=== PATIENT | female | born 1945 | race Caucasian/White ===

== ENCOUNTER 2016-11-29 22:42 | Inpatient (IN) | payer MEDICARE ==
[~2016-11-29] VITALS: Ht 172.7 cm; Wt 44.5 kg
[2016-11-29] MEDS ORDERED: PAXIL10 MG ORAL (22:55)
[2016-11-29] MEDS ORDERED: INHALER (22:55)
[2016-11-29 23:00] VITALS: BP 97/62
[2016-11-29] MEDS ORDERED: Morphine Sulfate 2mg/ml Inj IVP ONE (23:15)
[2016-11-30] VITALS (7 sets, daily range): BP systolic 101–161; BP diastolic 65–104
[2016-11-30 00:16] LABS: BASOPHILS % (AUTO) 1.3 % (0.0-2.0); EOSINOPHILS % (AUTO) 1.6 % (0.0-3.0); LYMPHOCYTES % (AUTO) 21.5 % (20.0-45.0); MEAN CORPUSCULAR HGB CONC 33.3 G/DL (32.0-36.0); MEAN CORPUSCULAR VOLUME 108 FL (80-99); MEAN PLATELET VOLUME 6.3 FL (6.5-10.1); MONOCYTES % (AUTO) 6.4 % (1.0-10.0); NEUTROPHILS % (AUTO) 69.2 % (45.0-75.0); PLATELET COUNT 325 K/UL (150-450); RED BLOOD COUNT 4.61 M/UL (4.20-5.40); RED CELL DISTRIBUTION WIDTH 12.7 % (11.6-14.8); WHITE BLOOD COUNT 6.2 K/UL (4.8-10.8)
--- NOTE | 2016-11-30 00:24 | Emergency Room Report ---
History of Present Illness General Chief Complaint: Multiple Trauma/Fall Source: Patient Present Illness HPI Patient is 71-year-old female who presented after increased right hip pain after a fall. The patient reportedly had difficulty standing. Patient was brought in by EMS. Patient had prior history of left hip replacement. Patient had pain to her left hip. She denied other locations of pain. She denied any head trauma. Patient had increased pain with movement. Patient's previous orthopedic surgery was done by Dr. Rudy Taylor. Allergies: Coded Allergies: ASPIRIN (Verified Allergy, Unknown, 11/29/16) Patient History Past Medical History: see triage record Reviewed Nursing Documentation: PMH: Agreed, PSxH: Agreed Nursing Documentation-PMH Hx Asthma: Yes Review of Systems All Other Systems: negative except mentioned in HPI Physical Exam Vital Signs Date Time Temp Pulse Resp B/P Pulse Ox O2 Delivery O2 Flow Rate FiO2 11/29/16 22:51 98.4 101 16 97/62 98 Room Air Sp02 EP Interpretation: reviewed, normal General Appearance: normal inspection, well appearing, no apparent distress, alert, GCS 15, thin Head: atraumatic ENT: normal ENT inspection, hearing grossly normal, normal voice Neck: normal inspection, full range of motion, supple, no bony tend Respiratory: normal inspection, lungs clear, normal breath sounds, no respiratory distress, no retraction, no wheezing Cardiovascular #1: regular rate, rhythm, no edema Gastrointestinal: normal inspection, normal bowel sounds, non tender, soft, no guarding, no hernia Genitourinary: no CVA tenderness Musculoskeletal: normal inspection, back normal, normal range of motion Neurologic: normal inspection, alert, oriented x3, responsive, fraternity adviser III-XII nml as tested, speech normal Psychiatric: normal inspection, judgement/insight normal, mood/affect normal Skin: normal inspection, normal color, no rash Medical Decision Making Diagnostic Impression: Primary Impression: Fall Additional Impressions: Closed right hip fracture Trochanteric fracture ER Course Patient presented after a fall. Differential diagnosis included was not limited to right hip fracture, dislocation, contusion, acetabular fracture among others.Because of complexity of patient's case laboratory testing and imaging studies were ordered. The patient was noted to have CT imaging read by radiologist which shows a right trochanteric fracture. Patient was given IV pain medications. The patient was discussed with [facility] and she stated she wanted to be transferred however they do not have any beds available. Dr. Calloway was contacted for inpatient management due to complexity of medical condition. The patient declined orthopedic consult at [facility] at this time Labs Test 11/30/16 00:00 White Blood Count 6.2 K/UL (4.8-10.8) Red Blood Count 4.61 M/UL (4.20-5.40) Hemoglobin 16.6 G/DL (12.0-16.0) Hematocrit 49.8 % (37.0-47.0) Mean Corpuscular Volume 108 FL (80-99) Mean Corpuscular Hemoglobin 36.0 PG (27.0-31.0) Mean Corpuscular Hemoglobin Concent 33.3 G/DL (32.0-36.0) Red Cell Distribution Width 12.7 % (11.6-14.8) Platelet Count 325 K/UL (150-450) Mean Platelet Volume 6.3 FL (6.5-10.1) Neutrophils (%) (Auto) 69.2 % (45.0-75.0) Lymphocytes (%) (Auto) 21.5 % (20.0-45.0) Monocytes (%) (Auto) 6.4 % (1.0-10.0) Eosinophils (%) (Auto) 1.6 % (0.0-3.0) Basophils (%) (Auto) 1.3 % (0.0-2.0) Prothrombin Time 9.7 SEC (9.30-11.50) Prothromb Time International Ratio 0.9 (0.9-1.1) Activated Partial Thromboplast Time 26 SEC (23-33) Sodium Level 138 mEQ/L (135-145) Potassium Level 4.0 mEQ/L (3.4-4.9) Chloride Level 98 mEQ/L (98-107) Carbon Dioxide Level 28 mEQ/L (20-30) Anion Gap 12 (5-15) Blood Urea Nitrogen 12 mg/dL (7-23) Creatinine 1.1 mg/dL (0.5-0.9) Estimat Glomerular Filtration Rate 49.1 mL/min (>60) Glucose Level 156 mg/dL (74-106) Calcium Level 9.7 mg/dL (8.6-10.2) Total Bilirubin 0.3 mg/dL (0.0-1.2) Aspartate Amino Transf (AST/SGOT) 16 U/L (5-40) Alanine Aminotransferase (ALT/SGPT) 10 U/L (3-33) Alkaline Phosphatase 70 U/L (35-104) Total Protein 6.5 g/dL (6.6-8.7) Albumin 4.3 g/dL (3.5-5.2) Globulin 2.2 g/dL Albumin/Globulin Ratio 1.9 (1.0-2.7) EKG Diagnostic Results Rate: normal Rhythm: NSR ST Segments: no acute changes ASA given to the pt in ED: No Last Vital Signs Date Time Temp Pulse Resp B/P Pulse Ox O2 Delivery O2 Flow Rate FiO2 11/29/16 22:51 98.4 101 16 97/62 98 Room Air Status: unchanged Disposition: ADMITTED INPATIENT Condition: Serious Referrals: NON PHYSICIAN (PCP) Felice Dover Nov 30, 2016 00:24
[2016-11-30 00:28] LABS: INR 0.9 (0.9-1.1); PROTHROMBIN TIME 9.7 SEC (9.30-11.50)
[2016-11-30 00:32] LABS: ALBUMIN/GLOBULIN RATIO 1.9 (1.0-2.7); CALCIUM 9.7 mg/dL (8.6-10.2); CREATININE 1.1 mg/dL (0.5-0.9); GLOMERULAR FILTRATION RATE 49.1 mL/min (>60); TOTAL PROTEIN 6.5 g/dL (6.6-8.7)
[2016-11-30] MEDS ORDERED: Morphine Sulfate 2mg/ml Inj IVP ONE (01:00)
[2016-11-30] MEDS ORDERED: Morphine Sulfate 2mg/ml Inj IVP PRN ×4 (01:30→17:30)
[2016-11-30] MEDS ORDERED: D5 1/2NS 1,000 ML IV SCH (06:42)
[2016-11-30] MEDS ORDERED: LORazepam Inj 2mg/ml 1ml IV PRN (06:45)
[2016-11-30] MEDS ORDERED: Miralax 17gm pkt ORAL PRN (06:45)
[2016-11-30] MEDS ORDERED: Zolpidem 5mg tab ORAL PRN (06:45)
[2016-11-30] MEDS ORDERED: Mylanta II UD 30ml ORAL PRN (06:45)
[2016-11-30] MEDS: Morphine Sulfate 4mg/ml Inj IVP PRN ×3 (07:56→15:55)
--- NOTE | 2016-11-30 08:52 | Consultation ---
History of Present Illness General Date patient seen: Nov 30, 2016 Chief Complaint: Multiple Trauma/Fall Present Illness Allergies: Coded Allergies: ASPIRIN (Verified Allergy, Unknown, 11/29/16) Medication History Scheduled Paroxetine Hcl* (Paxil*), 10 MG ORAL DAILY, (Reported) Miscellaneous Medications [Inhaler], (Reported) Patient History Healthcare decision maker Resuscitation status Advanced Directive on File Physical Exam Last 24 Hour Vital Signs Date Time Temp Pulse Resp B/P Pulse Ox O2 Delivery O2 Flow Rate FiO2 11/30/16 08:38 97.0 81 20 161/104 95 Room Air 11/30/16 04:02 98.4 11/30/16 04:00 97.0 80 18 151/92 96 Room Air 11/30/16 01:43 98.4 89 16 105/65 99 Room Air 11/30/16 01:40 98.4 89 16 105/65 99 Room Air 11/30/16 01:34 98.2 11/30/16 01:05 98.2 98 17 101/68 100 Room Air 11/30/16 00:34 98.2 11/29/16 23:00 98.4 101 16 97/62 98 Room Air 11/29/16 22:51 98.4 101 16 97/62 98 Room Air Laboratory Tests Test 11/30/16 00:00 White Blood Count 6.2 K/UL (4.8-10.8) Red Blood Count 4.61 M/UL (4.20-5.40) Hemoglobin 16.6 G/DL (12.0-16.0) H Hematocrit 49.8 % (37.0-47.0) H Mean Corpuscular Volume 108 FL (80-99) H Mean Corpuscular Hemoglobin 36.0 PG (27.0-31.0) H Mean Corpuscular Hemoglobin Concent 33.3 G/DL (32.0-36.0) Red Cell Distribution Width 12.7 % (11.6-14.8) Platelet Count 325 K/UL (150-450) Mean Platelet Volume 6.3 FL (6.5-10.1) L Neutrophils (%) (Auto) 69.2 % (45.0-75.0) Lymphocytes (%) (Auto) 21.5 % (20.0-45.0) Monocytes (%) (Auto) 6.4 % (1.0-10.0) Eosinophils (%) (Auto) 1.6 % (0.0-3.0) Basophils (%) (Auto) 1.3 % (0.0-2.0) Prothrombin Time 9.7 SEC (9.30-11.50) Prothromb Time International Ratio 0.9 (0.9-1.1) Activated Partial Thromboplast Time 26 SEC (23-33) Sodium Level 138 mEQ/L (135-145) Potassium Level 4.0 mEQ/L (3.4-4.9) Chloride Level 98 mEQ/L (98-107) Carbon Dioxide Level 28 mEQ/L (20-30) Anion Gap 12 (5-15) Blood Urea Nitrogen 12 mg/dL (7-23) Creatinine 1.1 mg/dL (0.5-0.9) H Estimat Glomerular Filtration Rate 49.1 mL/min (>60) Glucose Level 156 mg/dL (74-106) H Calcium Level 9.7 mg/dL (8.6-10.2) Total Bilirubin 0.3 mg/dL (0.0-1.2) Aspartate Amino Transf (AST/SGOT) 16 U/L (5-40) Alanine Aminotransferase (ALT/SGPT) 10 U/L (3-33) Alkaline Phosphatase 70 U/L (35-104) Total Protein 6.5 g/dL (6.6-8.7) L Albumin 4.3 g/dL (3.5-5.2) Globulin 2.2 g/dL Albumin/Globulin Ratio 1.9 (1.0-2.7) Height (Feet): 5 Height (Inches): 8.00 Weight (Pounds): 98 Medications Current Medications Medications (Trade) Dose Ordered Sig/Negro Route PRN Reason Start Time Stop Time Status Last Admin Dose Admin Acetaminophen (Tylenol) 650 mg Q4H PRN ORAL fever 11/30/16 06:45 12/30/16 06:44 Al Hydroxide/Mg Hydroxide (Mylanta II) 30 ml Q6H PRN ORAL dyspepsia 11/30/16 06:45 12/30/16 06:44 Dextrose (Dextrose 50%) STAT PRN IV Hypoglycemia 11/30/16 06:45 12/30/16 06:44 Dextrose/Sodium Chloride (D5 0.45% NS) 1,000 ml @ 50 mls/hr Q20H IV 11/30/16 06:42 12/30/16 06:41 11/30/16 07:34 Heparin Sodium (Porcine) (Heparin 5000 units/ml) 5,000 units EVERY 12 HOURS SUBQ 11/30/16 09:00 12/30/16 08:59 Lorazepam (Ativan 2mg/ml 1ml) 0.5 mg Q4H PRN IV For Anxiety 11/30/16 06:45 12/07/16 06:44 Morphine Sulfate (Morphine Sulfate) 2 mg EVERY 4 HOURS PRN IVP For Pain 4-6 11/30/16 06:45 12/07/16 06:44 Morphine Sulfate (Morphine Sulfate) 2 mg Q4H PRN IVP For Pain 11/30/16 03:00 12/07/16 02:59 11/30/16 03:32 Morphine Sulfate (Morphine Sulfate) 4 mg Q4H PRN IVP For Pain 7-10 11/30/16 06:45 12/07/16 06:44 11/30/16 07:56 Ondansetron HCl (Zofran) 4 mg Q6H PRN IVP Nausea & Vomiting 11/30/16 06:45 12/30/16 06:44 Paroxetine HCl 10 mg 10 mg DAILY ORAL 11/30/16 09:00 12/30/16 08:59 Polyethylene Glycol (Miralax) 17 gm HSPRN PRN ORAL Constipation 11/30/16 06:45 12/30/16 06:44 Zolpidem Tartrate (Ambien) 5 mg HSPRN PRN ORAL Insomnia 11/30/16 06:45 12/30/16 06:44 Assessment/Plan Assessment/Plan (1) Right hip pain (2) Right hip Fracture (3) S/p fall seen dictated HOWARD WICK Nov 30, 2016 08:52
[2016-11-30] MEDS: Heparin 5000 units/ml inj SUBQ SCH ×2 (09:00→21:00)
[2016-11-30] MEDS ORDERED: PARoxetine 10mg tab ORAL SCH (09:00)
[2016-11-30] MEDS ORDERED: Morphine Sulfate 4mg/ml Inj IVP PRN ×3 (17:15→17:30)
--- NOTE | 2016-11-30 18:13 | Cardiology Report ---
APPROVED REPORT EKG Measurement Heart [id number] [id number] Normal sinus rhythm Right atrial enlargement Nonspecific ST abnormality Abnormal ECG
[2016-11-30] MEDS ORDERED: D5 1/2NS 1000ml IV ONE (22:42)
--- NOTE | 2016-11-30 23:30 | History and Physical ---
History of Present Illness General Date patient seen: Nov 30, 2016 Reason for Hospitalization: Multiple Trauma/Fall Present Illness HPI 71-year-old female who presented after increased right hip pain after a fall. The patient reportedly had difficulty standing. Patient was brought in by EMS. Patient had pain to her left hip. She denied other locations of pain. She denied any head trauma. Patient had increased pain with movement. she was diagnosed to have Hip fracture again. She is admitted for possible surgery. She requesting to be transferred to [facility] for hip replacement. Allergies: Coded Allergies: ASPIRIN (Verified Allergy, Unknown, 11/29/16) Medication History Scheduled Paroxetine Hcl* (Paxil*), 10 MG ORAL DAILY, (Reported) Miscellaneous Medications [Inhaler], (Reported) Patient History Healthcare decision maker Resuscitation status Advanced Directive on File Past Medical/Surgical History Past Medical/Surgical History: (1) Trochanteric fracture Review of Systems All Other Systems: negative except mentioned in HPI Physical Exam General Appearance: WD/WN Lines, tubes and drains: peripheral HEENT: normocephalic, atraumatic Neck: non-tender, normal alignment Respiratory/Chest: chest wall non-tender, lungs clear Cardiovascular/Chest: normal peripheral pulses, normal rate Last 24 Hour Vital Signs Date Time Temp Pulse Resp B/P Pulse Ox O2 Delivery O2 Flow Rate FiO2 11/30/16 16:16 97.0 81 20 153/98 95 Room Air 11/30/16 12:26 97.0 77 20 156/95 95 Room Air 11/30/16 12:26 97.0 11/30/16 08:55 82 144/96 11/30/16 08:38 97.0 81 20 161/104 95 Room Air 11/30/16 04:02 98.4 11/30/16 04:00 97.0 80 18 151/92 96 Room Air 11/30/16 01:43 98.4 89 16 105/65 99 Room Air 11/30/16 01:40 98.4 89 16 105/65 99 Room Air 11/30/16 01:34 98.2 11/30/16 01:05 98.2 98 17 101/68 100 Room Air 11/30/16 00:34 98.2 Laboratory Tests Test 11/30/16 00:00 White Blood Count 6.2 K/UL (4.8-10.8) Red Blood Count 4.61 M/UL (4.20-5.40) Hemoglobin 16.6 G/DL (12.0-16.0) H Hematocrit 49.8 % (37.0-47.0) H Mean Corpuscular Volume 108 FL (80-99) H Mean Corpuscular Hemoglobin 36.0 PG (27.0-31.0) H Mean Corpuscular Hemoglobin Concent 33.3 G/DL (32.0-36.0) Red Cell Distribution Width 12.7 % (11.6-14.8) Platelet Count 325 K/UL (150-450) Mean Platelet Volume 6.3 FL (6.5-10.1) L Neutrophils (%) (Auto) 69.2 % (45.0-75.0) Lymphocytes (%) (Auto) 21.5 % (20.0-45.0) Monocytes (%) (Auto) 6.4 % (1.0-10.0) Eosinophils (%) (Auto) 1.6 % (0.0-3.0) Basophils (%) (Auto) 1.3 % (0.0-2.0) Prothrombin Time 9.7 SEC (9.30-11.50) Prothromb Time International Ratio 0.9 (0.9-1.1) Activated Partial Thromboplast Time 26 SEC (23-33) Sodium Level 138 mEQ/L (135-145) Potassium Level 4.0 mEQ/L (3.4-4.9) Chloride Level 98 mEQ/L (98-107) Carbon Dioxide Level 28 mEQ/L (20-30) Anion Gap 12 (5-15) Blood Urea Nitrogen 12 mg/dL (7-23) Creatinine 1.1 mg/dL (0.5-0.9) H Estimat Glomerular Filtration Rate 49.1 mL/min (>60) Glucose Level 156 mg/dL (74-106) H Calcium Level 9.7 mg/dL (8.6-10.2) Total Bilirubin 0.3 mg/dL (0.0-1.2) Aspartate Amino Transf (AST/SGOT) 16 U/L (5-40) Alanine Aminotransferase (ALT/SGPT) 10 U/L (3-33) Alkaline Phosphatase 70 U/L (35-104) Total Protein 6.5 g/dL (6.6-8.7) L Albumin 4.3 g/dL (3.5-5.2) Globulin 2.2 g/dL Albumin/Globulin Ratio 1.9 (1.0-2.7) Height (Feet): 5 Height (Inches): 8.00 Weight (Pounds): 98 Assessment/Plan Problem List: (1) Hip fracture ICD Codes: S72.009A - Fracture of unspecified part of neck of unspecified femur , initial encounter for closed fracture SNOMED: [id number] Assessment/Plan ortho evaluation dvt prophylaxis pain management STEVEN THORNTON Nov 30, 2016 23:30
--- NOTE | 2016-12-01 00:46 | Consultation ---
DATE OF CONSULTATION: 11/30/2016 PAIN MANAGEMENT CONSULTATION CONSULTING PHYSICIAN: Lopez Wolf M.D. PHYSICIAN DESKTOP SUPPORT ASSOCIATE: Zaira Goddard REFERRING PHYSICIAN: Yamileth Calloway M.D. REASON FOR CONSULTATION/CHIEF COMPLAINT: Right hip pain. HISTORY OF PRESENT ILLNESS: This is a 71-year-old female who is being seen on the Med/Surg floor of [facility] for initial comprehensive pain management consultation. The patient states she has been having right hip pain since last night. It is a constant acute pain, rating 9/10, describing as sharp stabbing pain, increased with movement, and medication has been relieving her pain. The patient was brought to the emergency room here in [facility], wanted to be transferred to [facility], however, was admitted. She had previous total hip replacement done on the left hip with Dr. Rudy Taylor and is deciding if she would like to have surgery here in this hospital. At this time, the patient reports that her pain is tolerated on the current medication of morphine 2 mg every 4 hours as needed for moderate pain and morphine 4 mg IV every 4 hours as needed for severe pain and is waiting to be seen by a surgeon to discuss about surgical intervention. We were consulted, so that the patient would have adequate pain control while here in the hospital. PAST MEDICAL HISTORY: Osteoarthritis. PAST SURGICAL HISTORY: Skin cancer removal; ovarian tube removal; foot surgery; total hip replacement, left hip; and cataract surgery. SOCIAL HISTORY: She is a smoker. Drinks occasional alcohol. Denies intravenous drug abuse. ALLERGIES: Aspirin. MEDICATIONS: Paxil. REVIEW OF SYSTEMS: Denies rash, fever, chills, sweating, dizziness, drowsiness, blurred vision, sore throat, or change in weight. No shortness of breath or chest pain. No nausea, vomiting, diarrhea, or blood in the stool or urine. No bowel or bladder incontinence. No dysuria. She is complaining of right hip pain. PHYSICAL EXAMINATION: GENERAL: Alert, awake, and oriented x3. VITAL SIGNS: Blood pressure 161/104, oxygen saturation 95%, respiratory rate is 20, temperature is 97 degrees Fahrenheit, and heart rate is 81. Height is 5 feet 8 inches and weight is 98 pounds. HEENT: PERRLA. NECK: Range of motion is full in all directions. No tenderness to paracervical muscles. No adenopathy. LUNGS: Decreased breath sounds bilaterally. HEART: Regular. ABDOMEN: Benign. BACK: Range of motion is full on flexion and extension. No tenderness to paraspinal muscles, trapezius, or rhomboid muscles. EXTREMITIES: Upper extremity range of motion is full in all directions. Motor is intact. No cyanosis. No clubbing. No edema. Sensory is intact. Reflexes are unobtainable. No adenopathy. Lower extremity range of motion is decreased due to the patient's medical condition with tenderness to palpation of the right hip. No cyanosis. No clubbing. Sensory is intact. Reflexes are unobtainable. No adenopathy. ASSESSMENT AND PLAN: This is a 71-year-old female with right hip pain and right hip fracture status post fall. The patient will be continued on morphine 2 to 4 mg IV every 4 hours as needed for moderate to severe pain. Waiting to be seen by orthopedic surgeon. The patient was discussed with Dr. Wolf and Dr. Wolf concurred. We will follow the patient. Thank you very much for the courtesy of this consultation. Lopez Wolf M.D. LU Goddard DR: KRISTEN JOB#: [id number] CC:
--- NOTE | 2016-12-02 13:18 | Discharge Summary ---
Discharge Summary Hospital Course Date of Admission Nov 30, 2016 at 00:10 Date of Discharge Nov 30, 2016 at 22:43 Admitting Diagnosis RIGHT HIP FRACTURE HPI Justina Huerta is a 71 year old female who was admitted on Nov 30, 2016 at 00: 10 for Right Hip Fracture Hospital Course [id number] Discharge Discharge Disposition Patient was discharged to [facility] Discharge Diagnoses: Lima Cormier NP Dec 02, 2016 13:18
--- NOTE | 2016-12-03 01:01 | Discharge Summary 2 SIG ---
DATE OF ADMISSION: 11/30/2016 DATE OF DISCHARGE: 11/30/2016 COLLECTION AGENT: Lopez Wolf M.D. BRIEF HOSPITAL COURSE: The patient is a 71-year-old female, who presented to ED after increased pain on the right hip after a fall. She reportedly had difficulty standing and was brought in by EMS. She denied head trauma and had increased pain with movement. On evaluation at ED, CT scan showed right trochanteric fracture. She was given IV pain medications. She wanted to be transferred to [facility], however, no bed was available. She was then admitted under the service of Dr. Calloway. Pain management was consulted. She was given morphine as needed. She was eventually transferred to [facility]. FINAL DIAGNOSES: 1. Right trochanteric fracture. 2. Status post fall. Yamileth Calloway M.D. I have been assigned to dictate discharge summary on this account and I was not involved in the patient's management. Lima Cormier N.P. DR: CHAYO JOB#: [id number] CC:
== END 2016-11-30 22:43 | disposition short-term general hospital (02) | DRG 536 ==
LOC: EDBD 22:42 → EMR 23:07 → 4W 11-30 00:10 → EDBEDREQ 11-30 00:58 → 4W 11-30 07:00
DX: S72.101A Unspecified trochanteric fracture of right femur, initial encounter for closed fracture (principal); F17.200 Nicotine dependence, unspecified, uncomplicated; W19.XXXA Unspecified fall, initial encounter; Z88.6 Allergy status to analgesic agent; M19.90 Unspecified osteoarthritis, unspecified site; Z96.642 Presence of left artificial hip joint
CPT/HCPCS: 36415; 72192; 80053; 85025; 85610; 85730; 86850; 86900; 86901; 93005; J2405